=== PATIENT | female | born 1955 | race Two or more races ===

== ENCOUNTER 2024-05-23 13:14 | Outpatient (AMB) | payer OTHER, SELFPAY ==
[2024-05-23 13:28] VITALS: BP 180/80; PULSE 75; RESP 18; TEMP 36.9; O2SAT 96; BMI 39.4
--- NOTE | 2024-05-23 13:28 | PD.GSCLVISIT ---
Vital Signs - [facility] 05/23/24 13:28 Height 1.5 m Height Method Stated Weight 88.536 kg Weight Measurement Method Standing Scale BMI 39.4 BP 180/80 H Blood Pressure Source Automatic Cuff Blood Pressure Location Left Upper Arm Position Sitting Respiration 18 Pulse 75 Pulse Source Monitor Temp 98.4 F Temp Source Temporal Artery Scan Pulse Oximetry (%) 96 Oxygen Delivery Method Room Air Med/Allergies Allergies & Medications Allergies No Known Allergies Allergy (Verified 05/23/24 13:29) Medication Reconciliation amlodipine 10 mg tablet 10 mg PO QDAY ##0 07/19/13 [History Confirmed 05/23/24] benazepril 40 mg tablet (Lotensin) 40 mg PO BID #0 tabs 07/19/13 [History Confirmed 05/23/24] chlorthalidone 25 mg tablet 25 mg PO QDAY #0 tabs 07/19/13 [History Confirmed 05/23/24] gabapentin 400 mg capsule 400 mg PO BID 10/11/17 [History Confirmed 05/23/24] atorvastatin 10 mg tablet 10 mg PO QDAY 07/18/22 [History Confirmed 05/23/24] acetaminophen 500 mg oral powder packet (Tylenol Extra Strength) 500 mg PO Q6H PRN 05/23/24 [History Confirmed 05/23/24] milk thistle seed extract 175 mg capsule 175 mg PO QDAY 05/23/24 [History Confirmed 05/23/24] semaglutide 14 mg tablet (Rybelsus) 14 mg PO QDAY 05/23/24 [History Confirmed 05/23/24] MA Intake Visit Data Collection New Patient or Established: New Patient (never been to [facility]) Seen by Clinical Staff ONLY (RN/MA): No Reason for Visit:: REFERRAL HEMORRHOIDS Pain Present Currently: No Commercial Internship Required: No PCP or OBGYN visit in last 3 months: Yes Hx Now: No Do You Feel Safe at Home: Yes Authorities Contacted: N/A Smoking Status Smoking Status: Never smoker Immunization / Flu Flu Vaccine in the Last 12 Months: Yes Flu Vaccine Exclusion Criteria: Already Received Past Medical History Past Medical History NEUROLOGIC: Positive Neurological Disorders and Cerebrovascular Accident; Negative Seizures CARDIAC: Positive Cardiac Disorders, Hypercholesterolemia, Deep Vein Thrombosis (left) and Hypertension; Negative Congestive Heart Failure RESPIRATORY: Negative Chronic Obstructive Pulmonary Disease (COPD), Asthma or Sleep Apnea GASTROINTESTINAL: Positive Gastrointestinal Disorders and Obesity GENITOURINARY: Negative Genitourinary Disorders or Renal Disease REPRODUCTIVE: Positive Previous Pregnancies ENT: Positive Cataracts (derrick) ENDOCRINE: Positive Endocrine Disorders and Diabetes Mellitus Type 2; Negative Diabetes Mellitus Type 1 HEMATOLOGIC: Negative Blood Disorders or Sickle Cell Disease OTHER HISTORY: Positive Hospitalization (surgeries, stroke) and Chicken Pox; Negative Autoimmune Disease, Shingles, Blood Transfusions, Blood Transfusion Reaction, Anesthesia Reactions, MRSA or Cancer Family History FAMILY HISTORY: Positive Family Cancer and Family Surgery; Negative Family Psychiatric Problems, Family Respiratory Disorders, Family Cardiac Disorders, Family Gastrointestinal Problems or Family Anesthesia Reaction Surgical History SURGICAL: Positive Bowel Surgery (colectomy) and Section Social History SMOKING STATUS: Smoking status: Never smoker ALCOHOL: Alcohol Intake: Never HOUSING: Housing: House HPI HPI Narrative 68F with HTN, HLD, DMII referred for hemorrhoids. Pt reports she has external hemorrhoids, they are somewhat bothersome but not too painful, and she does sometimes have blood upon wiping. She denies any change in stool caliber, anorexia and unintentional weight loss, and underwent colonoscopy in 2021 internal hemorrhoids and diverticulosis. Pt states her BMs alternate between constipation and diarrhea, and the diarrhea has been present since her cholecystectomy a few years ago. Pt drinks up to 64 oz of water daily and eats fiber-rich foods but does not take any fiber supplements. Because the hemorrhoids are not very bothersome pt does not use any remedies at the moment; she was prescribed a cream but does not use it and has not taken sitz baths PMH: HTN, HLD, DMII PSHx: Colectomy for obstruction, cholecystectomy Meds: pt took eliquis previously but is now off, no other anticoagulation or antiplt Allergies: NKDA Family hx: no known CRC ROS Review of Systems Systems Reviewed: All systems reviewed, normal except as documented Objective/Exam General General Appearance: alert, cooperative and well groomed Resp Respiratory exam: Absent respiratory distress Assessment & Plan Diagnosis / Problem List (1) Hemorrhoids, external: Status: Acute Assessment & Plan: 68F with HTN, HLD, DMII and external hemorrhoids with minimal symptoms. I explained that while there are surgical treatments, it is recommended to first maximize conservative management as surgery is quite painful, and indeed pt prefers to avoid surgery. I recommended pt initiate metamucil fiber daily, take sitz baths up to TID with epsom salt and begin using her cream. 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 3 ([id number]) Patient Portal Questionaires Social History Living Situation History Housing: House Tobacco History Smoking Status: Never smoker Alcohol History Alcohol Intake: Never Domestic Abuse History Do You Feel Safe at Home: Yes Review of Systems Report any current symptoms Only answer those that you have currently: Past Medical History Past Medical History Have you ever been diagnosed with any of the following: Neurological Problems Cerebrovascular Accident (CVA): Yes Seizures: No Cardiology Problems Hypercholesterolemia: Yes Congestive Heart Failure: No Deep Vein Thrombosis: Yes (left) Hypertension: Yes Respiratory Problems Chronic Obstructive Pulmonary Disease (COPD): No Asthma: No Sleep Apnea: No Stomache/Intestinal Problems Obesity: Yes Genital/Urinary Problems Renal Disease: No Reproductive Problems Previous Pregnancies: Yes Head,Eye,Nose,Throat Problems Cataracts: Yes (derrick) Endocrine Problems Diabetes Mellitus Type 1: No Diabetes Mellitus Type 2: Yes Blood Problems Sickle Cell Disease: No Other Problems Hospitalization: Yes (surgeries, stroke) Autoimmune Disease: No Shingles: No Blood Transfusions: No Blood Transfusion Reaction: No Anesthesia Reactions: No MRSA: No Chicken Pox: Yes Cancer: No
== END 2024-05-23 13:57 | disposition home or self-care (01) ==
LOC: HODSRG 13:14
PROVIDERS: PCP Family Medicine; Referring Provider Family Medicine; Supervising Provider Surgery; Visit Provider Surgery
DX: K64.4 Residual hemorrhoidal skin tags (principal)
CPT/HCPCS: 99203; G0463

== ENCOUNTER → 2024-06-16 | Outpatient (CLI) | payer OTHER, SELFPAY ==
[2024-06-16 12:42] LABS: Glucose Estimated Average 341 mg/dL (80-131); Hemoglobin A1C 13.5 % Hgb (4.8-6.0)
[2024-06-16 12:46] LABS: Creatinine MALB Rnd Ur 73 mg/dL (30-125); Microalbumin Creat Ratio 521 mg/gCrea (<30); Microalbumin, Random Urine > 380 mg/L (0-300)
[2024-06-16 13:07] LABS: Alanine Aminotransferase 13 U/L (10-49); Albumin/Globulin Ratio 1.8 (1.2-2.2); Alkaline Phosphatase 132 U/L (46-116); Anion Gap 12 (7-16); Aspartate Amino Transferase 15 U/L (0-34); BUN/Creatinine Ratio 23 Ratio (12-20); Bilirubin,Total 0.4 mg/dL (0.3-1.2); Blood Urea Nitrogen 46 mg/dL (9-23); Calcium 8.8 mg/dL (8.3-10.6); Calcium (Corrected) 8.8 mg/dL (8.5-10.1); Carbon Dioxide 24.4 mMol/L (20.0-31.0); Cardiac Risk Estimate 3.6 RATIO (3.7-5.6); Chloride 101 mMol/L (98-107); Cholesterol 187 mg/dL (132-200); Globulin 2.2 gm/dL (2.3-3.5); Glucose 265 mg/dL (74-106); HDL Cholesterol 52 mg/dL (40-60); LDL Cholesterol,Calculated 89 mg/dL (0-130); Osmolality,Calculated 294 (275-295); Potassium 4.1 mMol/L (3.4-5.1); Sodium 137 mMol/L (136-145); Total Protein 6.2 gm/dL (5.7-8.2); Triglycerides 231 mg/dL (30-150); eGFR 26 See Note
== END | disposition home or self-care (01) ==
PROVIDERS: PCP Family Medicine; Referring Provider Family Medicine; Visit Provider Family Medicine
DX: E11.65 Type 2 diabetes mellitus with hyperglycemia (principal); E78.1 Pure hyperglyceridemia
CPT/HCPCS: 36415; 80053; 80061; 82043; 82570; 83036

== ENCOUNTER → 2024-06-22 | Outpatient (CLI) | payer OTHER, SELFPAY ==
[2024-06-22 15:43] LABS: OBS Performed By LAB; OBS QC OK? Yes
[2024-06-22 16:46] LABS: Occult Blood, Stool Negative (Negative)
[2024-06-22 16:47] LABS: OBS Developer Expiration Date 123125; OBS Developer Lot # 551249
== END | disposition home or self-care (01) ==
LOC: SLDO 15:39
PROVIDERS: PCP Family Medicine; Referring Provider Family Medicine; Visit Provider Family Medicine
DX: Z12.11 Encounter for screening for malignant neoplasm of colon (principal)
CPT/HCPCS: 82270

== ENCOUNTER → 2024-07-19 | Outpatient (CLI) | payer OTHER, SELFPAY ==
--- NOTE | 2024-07-19 16:00 | XR_ITS ---
Examination: Retroperitoneal ultrasound, complete Technique: Multiple high resolution grayscale images of the retroperitoneum obtained, including kidneys and bladder. Exam date and time:July 19, 2024 1605 hours INDICATIONS: Chronic kidney disease stage IV laboratory examination 2 weeks ago FINDINGS: Right kidney 11.0 cm renal cortex 2.0 cm Left kidney 12.3 cm renal cortex 1.9 cm Moderate renal parenchymal scar formation No hydronephrosis No bladder mass or bladder calculi, bladder prevoid volume 51 cc IMPRESSION: Moderate bilateral renal parenchymal scar formation
== END | disposition home or self-care (01) ==
LOC: CDIM 15:45
PROVIDERS: PCP Internal Medicine; Referring Provider Internal Medicine; Visit Provider Internal Medicine
DX: N28.89 Other specified disorders of kidney and ureter (principal)
CPT/HCPCS: 76770

== ENCOUNTER → 2024-08-08 | Outpatient (CLI) | payer OTHER, SELFPAY ==
[2024-08-08 14:39] LABS: Basophils # (Auto) 0.1 Thou/mm3 (0.0-0.2); Basophils % (Auto) 1 % (0-2.5); Eosinophils # (Auto) 0.1 Thou/mm3 (0.0-0.5); Eosinophils % (Auto) 2 % (0-10); Hematocrit 30.5 % (36.0-46.0); Hemoglobin 10.2 g/dL (12.0-16.0); Immature Granulocytes % (Auto) 0 % (0-0); Immature Granulocytes Auto 0.01 Thou/mm3 (0.00-0.00); Lymphocytes % (Auto) 14 % (10-50); Mean Corpuscular HGB Conc 33.4 g/dl (31.0-37.0); Mean Corpuscular Volume 90 fL (80-100); Monocytes # (Auto) 0.4 Thou/mm3 (0.0-0.8); Monocytes % (Auto) 6 % (0-12); Neutrophils # (Auto) 5.2 Thou/mm3 (1.8-7.7); Neutrophils % (Auto) 77 % (37-80); Nucleated Red Blood Cell % 0 /100 WBC (0); Platelet Count 190 Thou/mm3 (140-440); RDW Standard Deviation 42.5 fL (36.4-46.3); White Blood Count 6.8 Thou/mm3 (3.6-11.0)
[2024-08-08 14:47] LABS: Parathyroid Hormone Intact 252.9 pg/ml (18.5-88.0)
[2024-08-08 14:51] LABS: Vitamin B12 281 pg/mL (211-911); Vitamin D 25 Hydroxy Total 12.6 ng/mL (7.3-40.2)
[2024-08-08 14:53] LABS: Alanine Aminotransferase 14 U/L (10-49); Albumin, Serum 4.1 gm/dL (3.4-4.8); Albumin/Globulin Ratio 1.7 (1.2-2.2); Alkaline Phosphatase 124 U/L (46-116); Anion Gap 7 (7-16); Aspartate Amino Transferase 14 U/L (0-34); BUN/Creatinine Ratio 24 Ratio (12-20); Bilirubin,Total 0.4 mg/dL (0.3-1.2); Blood Urea Nitrogen 46 mg/dL (9-23); Calcium 9.1 mg/dL (8.3-10.6); Calcium (Corrected) 9.1 mg/dL (8.5-10.1); Carbon Dioxide 22.7 mMol/L (20.0-31.0); Cardiac Risk Estimate 3.3 RATIO (3.7-5.6); Chloride 108 mMol/L (98-107); Cholesterol 153 mg/dL (132-200); Creatinine (Component) 1.9 mg/dL (0.6-1.3); Globulin 2.4 gm/dL (2.3-3.5); Glucose 258 mg/dL (74-106); HDL Cholesterol 46 mg/dL (40-60); LDL Cholesterol,Calculated 78 mg/dL (0-130); Osmolality,Calculated 296 (275-295); Potassium 4.2 mMol/L (3.4-5.1); Sodium 138 mMol/L (136-145); Thyroid Stimulating Hormone 1.82 uIU/mL (0.55-4.78); Total Protein 6.5 gm/dL (5.7-8.2); Triglycerides 146 mg/dL (30-150); Uric Acid 7.6 mg/dL (3.1-7.8); eGFR 28 See Note
[2024-08-08 15:16] LABS: Glucose Estimated Average 286 mg/dL (80-131); Hemoglobin A1C 11.6 % Hgb (4.8-6.0)
== END | disposition home or self-care (01) ==
LOC: COPL 13:17
PROVIDERS: PCP Family Medicine; Referring Provider Internal Medicine; Visit Provider Internal Medicine
DX: I12.9 Hypertensive chronic kidney disease with stage 1 through stage 4 chronic kidney disease, or unspecified chronic kidney disease (principal); E78.5 Hyperlipidemia, unspecified; N18.4 Chronic kidney disease, stage 4 (severe); E11.22 Type 2 diabetes mellitus with diabetic chronic kidney disease
CPT/HCPCS: 36415; 80053; 80061; 82306; 82607; 83036; 83970; 84443; 84550; 85025

== ENCOUNTER → 2024-08-10 | Outpatient (CLI) | payer OTHER, SELFPAY ==
[2024-08-10 17:55] LABS: Protein Total, Urine Volume 500 mL/24hr (600-1800); Total Volume,Urine 500 mL (600-1800)
[2024-08-10 17:59] LABS: Collection Time,Urine 24 Hours; Patient Height,Urine 72 Inches; Patient Weight,Urine 500 Pounds
[2024-08-10 18:14] LABS: Creatinine 24 Hour,Urine 0.3 gm/24hr (0.6-1.5); Creatinine,Urine 53 mg/dL (30-125); Protein Total, 24 hr Urine 750 mg/24hr (<149); Protein Total, Urine 150 mg/dL (1-14)
[2024-08-10 18:15] LABS: eGFR 26 See Note
[2024-08-10 20:53] LABS: Creatinine Clearance Urine 5 mL/min (90-139)
== END | disposition home or self-care (01) ==
PROVIDERS: PCP Family Medicine; Referring Provider Internal Medicine; Visit Provider Internal Medicine
DX: I12.9 Hypertensive chronic kidney disease with stage 1 through stage 4 chronic kidney disease, or unspecified chronic kidney disease (principal); E11.22 Type 2 diabetes mellitus with diabetic chronic kidney disease; N18.4 Chronic kidney disease, stage 4 (severe); E78.5 Hyperlipidemia, unspecified
CPT/HCPCS: 36415; 82565; 82575; 84156

== ENCOUNTER → 2025-03-03 | Outpatient (CLI) | payer OTHER, SELFPAY ==
[2025-03-03 13:31] LABS: Creatinine MALB Rnd Ur 80 mg/dL (30-125); Microalbumin Creat Ratio 1705 mg/gCrea (<30); Microalbumin, Random Urine 1364 mg/L (0-300)
[2025-03-03 14:34] LABS: Alanine Aminotransferase 15 U/L (10-49); Albumin, Serum 4.7 gm/dL (3.4-4.8); Albumin/Globulin Ratio 2.5 (1.2-2.2); Alkaline Phosphatase 96 U/L (46-116); Anion Gap 10 (7-16); Aspartate Amino Transferase 19 U/L (0-34); BUN/Creatinine Ratio 20 Ratio (12-20); Bilirubin,Total 0.5 mg/dL (0.3-1.2); Blood Urea Nitrogen 42 mg/dL (9-23); Calcium 9.1 mg/dL (8.3-10.6); Calcium (Corrected) 9.1 mg/dL (8.5-10.1); Carbon Dioxide 25.8 mMol/L (20.0-31.0); Cardiac Risk Estimate 3.4 RATIO (3.7-5.6); Chloride 107 mMol/L (98-107); Cholesterol 172 mg/dL (132-200); Creatinine (Component) 2.1 mg/dL (0.6-1.3); Globulin 1.9 gm/dL (2.3-3.5); Glucose 140 mg/dL (74-106); HDL Cholesterol 51 mg/dL (40-60); LDL Cholesterol,Calculated 96 mg/dL (0-130); Osmolality,Calculated 297 (275-295); Potassium 4.2 mMol/L (3.4-5.1); Sodium 143 mMol/L (136-145); Total Protein 6.6 gm/dL (5.7-8.2); Triglycerides 126 mg/dL (30-150); eGFR 25 See Note
[2025-03-03 15:12] LABS: Glucose Estimated Average 346 mg/dL (80-131); Hemoglobin A1C 13.7 % Hgb (4.8-6.0)
== END | disposition home or self-care (01) ==
LOC: COPL 12:25
PROVIDERS: PCP Family Medicine; Referring Provider Family Medicine; Visit Provider Family Medicine
DX: E11.65 Type 2 diabetes mellitus with hyperglycemia (principal); E78.1 Pure hyperglyceridemia
CPT/HCPCS: 36415; 80053; 80061; 82043; 82570; 83036